=== PATIENT | male | born 1975 | race Hispanic/Latino ===

== ENCOUNTER 2017-03-08 09:49 | Day surgery (SDC) | payer BC ==
[2017-03-05 13:33] VITALS: BMI 31.6
[2017-03-08] MEDS ORDERED: Iodixanol 320 MG/ML 200 ML BOTTLE IV ONE (11:51)
[2017-03-08] MEDS ORDERED: Lactated Ringer's 500 ML IV ONE (12:06)
[2017-03-08] MEDS ORDERED: Lidocaine 2% Jelly (Uro-Jet) ONE (12:07)
[2017-03-08] MEDS ORDERED: cefTRIAXone 1 gm 1 GM/100 ML BAG IVPB ONE (12:07)
[2017-03-08] MEDS ORDERED: Midazolam 2 MG/2 ML VIAL ONE (12:11)
[2017-03-08] MEDS ORDERED: Propofol 10 mg/ml Inj (20 ML) ONE (12:13)
[2017-03-08] MEDS ORDERED: HYDROmorphone 0.5 mg/0.5 ml ISec IVP PRN (12:40)
[2017-03-08] MEDS ORDERED: Iohexol 240 (50 ml) ONE (13:04)
[2017-03-08 14:18] VITALS: TEMP 98
[2017-03-08 14:36] VITALS: BP 123/70; PULSE 72; RESP 18; O2SAT 100
--- NOTE | 2017-03-08 16:24 | RAD ---
PROCEDURE: HISTORY: Urethral stricture COMPARISON: None TECHNIQUE: Total fluoroscopic time utilized during the procedure: 27.7 seconds. Total dose 0.95778 mGy cm squared FINDINGS: Submitted images from the current procedure: 6 Please refer to the physician's notes performing the procedure. At the prostatic/urethral junction a high-grade urethral smooth stricture is noted IMPRESSION: Less than 1 hour fluoroscopic time utilized during performance of the procedure
--- NOTE | 2017-03-09 00:26 | OP ---
PROCEDURE DATE: 03/08/2017 TIME OF DICTATION: Roughly 12:52 p.m. PREOPERATIVE DIAGNOSIS: Midurethral stricture. POSTOPERATIVE DIAGNOSIS: Midurethral stricture. PROCEDURE: Retrograde urethrogram and cystoscopy. SURGEON: Leodan Lester MD. TYPE OF ANESTHESIA: IV sedation. DESCRIPTION OF PROCEDURE: Patient was placed on the cystoscopy table in the left lateral decubitus position with the right lower extremity bent and the left lower extremity straight in preparation for retrograde urethrogram. Patient was prepped and draped in usual sterile fashion with Betadine solution. Next, a #16-Kosovan Seaman catheter was just inserted into the fossa navicularis and the balloon was inflated to about 3 mL to 4 mL. Using about additionally 30 mL of contrast solution, the contrast solution was injected in a retrograde fashion and it demonstrated the midurethral stricture, which appeared less than 2 cm in length. Additional contrast solution was injected about 20 mL and again it just showed the same location of the midurethral anterior stricture measuring less than 2 cm in length. Next, the catheter was removed and the patient was placed in dorsal lithotomy position, prepped and draped in the usual sterile fashion with Betadine solution. Under adequate IV sedation, the 22-Kosovan Storz cystoscope was inserted into the penile meatus and advanced towards the midurethral anterior stricture. This was seen and photographed. The patient did not want a definitive procedure done at this time, just documentation completely of the urethral stricture, which was done. At the end of the procedure, the cystoscope was removed, the post drainage film showed complete drainage of the urethra. Patient tolerated the procedure well without any blood loss and was brought to recovery area in satisfactory condition. Diagnostic impression of this patient is chronic longstanding mid anterior urethral stricture. We will try to find a physician urologist for a definitive urethroplasty. Leodan Lester MD
== END 2017-03-08 14:40 | disposition home or self-care (01) ==
LOC: C.SDS 09:49
PROVIDERS: ATTEND Urology
DX: N99.113 Postprocedural anterior bulbous urethral stricture, male (principal); N41.0 Acute prostatitis; N40.1 Benign prostatic hyperplasia with lower urinary tract symptoms
CPT/HCPCS: 51610; 52000; 76000; J0696; J7120; Q9966